=== PATIENT | female | born 1940 | race Caucasian/White ===

== ENCOUNTER 2017-12-14 09:13 | Day surgery (SDC) | payer OTHER ==
[~2017-12-14] VITALS: Ht 157.5 cm; Wt 80.7 kg
[~2017-12-14 09:13] MED LIST: ALEN70 PO; AMLO5 PO; ASCO500; ASPI325 PO; ASPI81CH PO; ASPI81EC; ATOR10; ATOR10 PO; CALCIUM PO; CEPH500 PO; CHOL10002; CHOL10002 PO; CIPR500 PO; CLOP75 PO; DIPH50 PO; ERGO400 PO; FAMO40 PO; Flonase 0.05% N16 GM; Fosamax70 MG; Fosamax70 MG PO; HYDACE5 PO; HYDR1TAB94 PO; IRON PO; LEVSOD100 PO; LEVSOD112 PO; LEVSOD125 PO; LEVSOD25; LORA10 PO; MELO7.5 PO; METR500 PO; MONT10T PO; MULVITMIND PO; MVI; Mobic15 MG PO; NAPR500 PO; Norco 5-325 Ta1 EACH PO; OMEP20ER PO; ONDA4 PO; OXYACE5T; OXYACE5T PO; PHENA200 PO; PRED20 PO; PROM25 PO; Prednisone20 MG PO; RXHYD5325 PO; RXOXYACE PO; RXPROM25 PO; SULTRIDS PO; Sudogest30 MG PO; TOCO400; TRAM50 PO; VICODIN 5-3001 EACH PO; VIT1CAPS12; Vitamin D2000 UNIT PO; Zithromax250 MG PO; Zofran Odt4 MG SL
== END 2017-12-14 12:30 | disposition home or self-care (01) ==
LOC: ORSCMMR 09:13
PROVIDERS: Internal Medicine Gastroenterology
PROC: 0DB68ZX Excision of Stomach, Via Natural or Artificial Opening Endoscopic, Diagnostic (ICD-10-PCS; principal; 2017-12-14 10:30)
PROC: 0DBP8ZX Excision of Rectum, Via Natural or Artificial Opening Endoscopic, Diagnostic (ICD-10-PCS; principal; 2017-12-14 10:30)
PROC: 0DBK8ZX Excision of Ascending Colon, Via Natural or Artificial Opening Endoscopic, Diagnostic (ICD-10-PCS; principal; 2017-12-14 10:30)
PROC: 0DBC8ZX Excision of Ileocecal Valve, Via Natural or Artificial Opening Endoscopic, Diagnostic (ICD-10-PCS; principal; 2017-12-14 10:30)
PROC: 0DB98ZX Excision of Duodenum, Via Natural or Artificial Opening Endoscopic, Diagnostic (ICD-10-PCS; principal; 2017-12-14 10:30)
DX: K62.5 Hemorrhage of anus and rectum (principal); K44.9 Diaphragmatic hernia without obstruction or gangrene; D12.0 Benign neoplasm of cecum; D12.2 Benign neoplasm of ascending colon; D12.4 Benign neoplasm of descending colon; K62.1 Rectal polyp; K64.8 Other hemorrhoids; K57.30 Diverticulosis of large intestine without perforation or abscess without bleeding; Z86.010 Personal history of colon polyps; Z80.0 Family history of malignant neoplasm of digestive organs; Z86.73 Personal history of transient ischemic attack (TIA), and cerebral infarction without residual deficits; E03.9 Hypothyroidism, unspecified; Z79.01 Long term (current) use of anticoagulants; Z79.82 Long term (current) use of aspirin; Z79.899 Other long term (current) drug therapy
CPT/HCPCS: 88305; 88342; J7120

== ENCOUNTER 2018-01-04 09:13 | Emergency (ER) | payer OTHER ==
[~2018-01-04] VITALS: Ht 157.5 cm; Wt 80.3 kg
[2018-01-04 10:51] LABS: Influenza A Negative (NEGATIVE); Influenza B Negative (NEGATIVE)
[2018-01-04] MEDS ORDERED: Zofran Odt4 MG SL (11:01)
[2018-01-04] MEDS ORDERED: Cheratussin AC118 ML PO (11:01)
[2018-01-04] MEDS ORDERED: Zithromax250 MG PO (11:02)
== END 2018-01-04 11:08 | disposition home or self-care (01) ==
LOC: ER 09:13
PROVIDERS: Physician Assistant
DX: R05 Cough (principal); R59.1 Generalized enlarged lymph nodes; Z88.8 Allergy status to other drugs, medicaments and biological substances; Z88.5 Allergy status to narcotic agent; Z79.899 Other long term (current) drug therapy; Z79.82 Long term (current) use of aspirin; I10 Essential (primary) hypertension; E03.9 Hypothyroidism, unspecified; Z86.73 Personal history of transient ischemic attack (TIA), and cerebral infarction without residual deficits
CPT/HCPCS: 71046; 87804; 99284

== ENCOUNTER 2019-03-02 16:05 | Emergency (ER) | payer OTHER ==
[~2019-03-02] VITALS: Ht 157.5 cm; Wt 90.7 kg
[~2019-03-02 16:05] MED LIST changes: +Cheratussin AC118 ML PO
== END 2019-03-02 19:33 | disposition home or self-care (01) ==
LOC: ER 16:05
DX: S01.81XA Laceration without foreign body of other part of head, initial encounter (principal); S61.412A Laceration without foreign body of left hand, initial encounter; S41.111A Laceration without foreign body of right upper arm, initial encounter; S16.1XXA Strain of muscle, fascia and tendon at neck level, initial encounter; I10 Essential (primary) hypertension; Z23 Encounter for immunization; Z86.73 Personal history of transient ischemic attack (TIA), and cerebral infarction without residual deficits; W18.30XA Fall on same level, unspecified, initial encounter
CPT/HCPCS: 12011; 70450; 72125; 73090; 73562-RT; 90471; 90714; 99283-25; L0160

== ENCOUNTER 2021-04-06 16:09 | Emergency (ER) | payer OTHER ==
[~2021-04-06] VITALS: Ht 154.9 cm; Wt 66.7 kg
[~2021-04-06 16:09] MED LIST changes: +METO25ER PO; +Tylenol325 MG PO
[2021-04-06 17:05] LABS: BASOPHILS ABSOLUTE AUTO 0.02 K/mm3 (0.00-0.23); BASOPHILS PERCENT AUTO 0 % (0-2); EOSINOPHILS ABSOLUTE AUTO 0.01 K/mm3 (0.00-0.68); EOSINOPHILS PERCENT AUTO 0 % (0-6); Hematocrit 29.5 % (33.0-51.0); IMMATURE GRAN ABSOLUTE AUTO 0.01 K/mm3 (0.00-0.10); IMMATURE GRAN PERCENT AUTO 0 % (0-1); LYMPHOCYTES ABSOLUTE AUTO 1.58 K/mm3 (0.84-5.20); LYMPHOCYTES PERCENT AUTO 32 % (21-46); MONOCYTES ABSOLUTE AUTO 0.35 K/mm3 (0.16-1.47); MONOCYTES PERCENT AUTO 7 % (4-13); Mean Corpuscular HGB 41.7 pg (26.0-34.0); Mean Corpuscular HGB Conc 33.9 g/dL (31.5-36.5); Mean Corpuscular Volume 123 fL (80-100); Mean Platelet Volume 10.6 fL (9.1-12.4); NEUTROPHILS PERCENT AUTO 60 % (41-73); Platelet Count 179 K/mm3 (150-400); RDW Coefficient Variation 15.4 % (11.7-14.2); RDW Standard Deviation 71.2 fL (35.1-46.3); White Blood Cell Count 4.97 K/mm3 (4.00-11.30)
[2021-04-06 17:17] LABS: Troponin I <0.015 ng/mL (0.000-0.040)
[2021-04-06 17:18] LABS: Alanine Aminotransfer (ALT/SGP 29 U/L (12-78); Albumin, Blood 4.2 g/dL (3.4-5.0); Albumin/Globulin Ratio 1.4 (0.8-1.8); Alk Phos 77 U/L (50-136); Anion Gap 5 mmol/L (6-16); Aspartate Aminotrans (AST/SGOT 27 U/L (12-37); Bilirubin, Total 1.3 mg/dL (0.1-1.0); Blood Urea Nitrogen 10 mg/dL (8-24); Bun/Creatinine Ratio 16.9 (12.0-20.0); CO2, Blood 28 mmol/L (21-32); Calcium, Blood 8.9 mg/dL (8.5-10.1); Chloride, Blood 104 mmol/L (98-108); Creatinine, Blood 0.59 mg/dL (0.40-1.00); Globulin, Blood 3.1 g/dL (2.2-4.0); Glomerular Filtration Rate >60 (60-); Glucose, Blood 68 mg/dL (70-99); Potassium, Blood 4.5 mmol/L (3.5-5.5); Sodium, Blood 137 mmol/L (136-145); Total Protein, Blood 7.3 g/dL (6.4-8.2)
[2021-04-06 19:57] LABS: Glucose, Blood 93 mg/dL (70-99)
[2021-04-06 20:23] LABS: Source, Urine Clean Catch
[2021-04-06 20:30] LABS: Appearance, Urine Clear (Clear); Bilirubin, Urine Neg (Neg); Blood, Urine Neg (Neg); Color, Urine Yellow (P-Yellow); Glucose Qualitative, Urine 2+ (Neg); Ketones, Urine Neg (Neg); Leukocyte Esterase, Urine Neg (Neg); Nitrite, Urine Neg (Neg); Protein, Urine Neg (Neg); Urobilinogen, Urine NORM (Normal)
== END 2021-04-06 21:00 | disposition home or self-care (01) ==
LOC: ER 16:09
PROVIDERS: Emergency Medicine; Physician Assistant
DX: R73.9 Hyperglycemia, unspecified (principal); I25.10 Atherosclerotic heart disease of native coronary artery without angina pectoris; I10 Essential (primary) hypertension; E03.9 Hypothyroidism, unspecified; Z86.73 Personal history of transient ischemic attack (TIA), and cerebral infarction without residual deficits; Z79.02 Long term (current) use of antithrombotics/antiplatelets; Z79.899 Other long term (current) drug therapy; Z79.890 Hormone replacement therapy
CPT/HCPCS: 36415; 71046; 80053; 81003; 82947; 84484; 85025; 93005; 93010; 96374; 99285-25

== ENCOUNTER → 2021-04-17 | Outpatient (CLI) | payer OTHER ==
[2021-04-21 11:15] LABS: Stool Occult Bld Immuno 1 Positive (NEGATIVE)
== END | disposition home or self-care (01) ==
LOC: LAB SHORT 07:00 → LAB 07:00
PROVIDERS: Nurse Practitioner Family
DX: K92.1 Melena (principal); D50.9 Iron deficiency anemia, unspecified
CPT/HCPCS: 82274

== ENCOUNTER 2021-11-23 08:13 | Day surgery (SDC) | payer OTHER ==
[~2021-11-23] VITALS: Ht 157 cm; Wt 69.0 kg
--- NOTE | 2021-11-23 08:51 | NUR ---
History, Chart, Medications and Allergies reviewed before start of procedure. Patient confirms NPO status and agrees with scheduled surgery. Reports taking all of colon prep with clear results. Patient States Post-Procedure ride home has been arranged with her [id number], Radha.
--- NOTE | 2021-11-23 09:12 | NUR ---
PATIENT ALERT AND ORIENTED TO SELF, PROCEDURE AND LOCATION, BUT UNABLE TO ANSWER MANY MEDICAL HX QUESTIONS AND STATES SHE HAS MEMORY ISSUES. HER [id number], SYLVESTER, IS INVITED TO JOIN HER TO HELP WITH MEDICAL HX PER PATIENT'S REQUEST.
[2021-11-23] MEDS ORDERED: ASPIR 8181 MG PO (09:21)
[2021-11-23] MEDS ORDERED: ALEN70 PO (09:22)
[2021-11-23] MEDS ORDERED: B-12500 MC2 PO (09:22)
[2021-11-23] MEDS ORDERED: VIT1CAPS12 PO (09:24)
[2021-11-23] MEDS ORDERED: IRON PO (09:25)
--- NOTE | 2021-11-23 10:24 | NUR ---
11/23/21 Li Peterson HISTORY,CHART, MEDICATIONS AND ALLERGIES REVIEWED BEFORE START OF PROCEDURE. PATIENT CONFIRMS NPO STATUS AND AGREES WITH SCHEDULED PROCEDURE. 3-LEAD EKG REVIEWED WITH PHYSICIAN PRIOR TO START OF PROCEDURE. MONITOR INTACT WITH CONTINUOUS PULSE OXIMETRY AND INTERMITTENT BP. SUPPLEMENTAL O2 TO BE TITRATED THROUGHOUT PROCEDURE TO MAINTAIN O2 SATURATION ABOVE 90%. PATIENT DETERMINED TO BE ASA APPROPRIATE FOR MODERATE SEDATION PRIOR TO START OF PROCEDURE BY . Bite Block Placed & REMOVED AT END OF CASE.
--- NOTE | 2021-11-23 11:29 | NUR ---
PT EATING PUDDING, PT HAS BEEN WANTING TO REST A LITTLE LONGER BEFORE DC. VSS
== END 2021-11-23 23:32 | disposition home or self-care (01) ==
LOC: ORSCMMR 08:13 → ORD 09:00 → ORSCMMR 09:00
PROVIDERS: Internal Medicine Gastroenterology
PROC: 0DB78ZX Excision of Stomach, Pylorus, Via Natural or Artificial Opening Endoscopic, Diagnostic (ICD-10-PCS; principal; 2021-11-23 09:00)
PROC: 0DB98ZX Excision of Duodenum, Via Natural or Artificial Opening Endoscopic, Diagnostic (ICD-10-PCS; principal; 2021-11-23 09:00)
PROC: 0DBL8ZX Excision of Transverse Colon, Via Natural or Artificial Opening Endoscopic, Diagnostic (ICD-10-PCS; principal; 2021-11-23 09:00)
DX: R19.5 Other fecal abnormalities (principal); D46.4 Refractory anemia, unspecified; D12.3 Benign neoplasm of transverse colon; K29.70 Gastritis, unspecified, without bleeding; K21.9 Gastro-esophageal reflux disease without esophagitis; Z86.010 Personal history of colon polyps; Z80.0 Family history of malignant neoplasm of digestive organs; I25.2 Old myocardial infarction; Z86.73 Personal history of transient ischemic attack (TIA), and cerebral infarction without residual deficits; E03.9 Hypothyroidism, unspecified; Z79.899 Other long term (current) drug therapy
CPT/HCPCS: 88305; 88342; A9270; J2250; J3010; J7120

== ENCOUNTER → 2022-12-03 | Outpatient (CLI) | payer OTHER ==
[~2022-12-03] MED LIST changes: +ASPIR 8181 MG PO; +B-12500 MC2 PO; +VIT1CAPS12 PO
[2022-12-03 20:01] LABS: Free Thyroxine 1.4 ng/dL (0.70-1.60)
[2022-12-03 20:05] LABS: Thyroid Stimulating Hormone 2.88 uIU/mL (0.360-4.800)
== END | disposition home or self-care (01) ==
LOC: LAB SHORT 16:56
PROVIDERS: Physician Assistant
DX: E03.9 Hypothyroidism, unspecified (principal)
CPT/HCPCS: 84439; 84443

== ENCOUNTER 2023-11-13 11:07 | Emergency (ER) | payer OTHER ==
[~2023-11-13] VITALS: Ht 157.5 cm; Wt 72.6 kg
[2023-11-13] MEDS ORDERED: MEMA10 PO (11:47)
[2023-11-13] MEDS ORDERED: EUTHYROX100 MC1 PO (11:48)
[2023-11-13 11:59] LABS: BASOPHILS ABSOLUTE AUTO 0.01 K/mm3 (0.00-0.23); BASOPHILS PERCENT AUTO 0 % (0-2); EOSINOPHILS ABSOLUTE AUTO 0.01 K/mm3 (0.00-0.68); EOSINOPHILS PERCENT AUTO 0 % (0-6); Hematocrit 42.2 % (33.0-51.0); IMMATURE GRAN ABSOLUTE AUTO 0.01 K/mm3 (0.00-0.10); IMMATURE GRAN PERCENT AUTO 0 % (0-1); LYMPHOCYTES ABSOLUTE AUTO 1.32 K/mm3 (0.84-5.20); LYMPHOCYTES PERCENT AUTO 25 % (21-46); MONOCYTES ABSOLUTE AUTO 0.43 K/mm3 (0.16-1.47); MONOCYTES PERCENT AUTO 8 % (4-13); Mean Corpuscular HGB 29.4 pg (26.0-34.0); Mean Corpuscular HGB Conc 33.2 g/dL (31.5-36.5); Mean Corpuscular Volume 89 fL (80-100); Mean Platelet Volume 12.1 fL (9.1-12.4); NEUTROPHILS ABSOLUTE AUTO 3.43 K/mm3 (1.96-9.15); NEUTROPHILS PERCENT AUTO 66 % (41-73); Platelet Count 182 K/mm3 (150-400); RDW Coefficient Variation 14.4 % (11.7-14.2); RDW Standard Deviation 46.3 fL (35.1-46.3); Red Blood Cell Count 4.76 M/mm3 (3.80-5.20); White Blood Cell Count 5.21 K/mm3 (4.00-11.30)
[2023-11-13 12:24] LABS: Albumin, Blood 3.1 g/dL (3.4-5.0); Albumin/Globulin Ratio 0.9 (0.8-1.8); Bilirubin, Total 0.6 mg/dL (0.1-1.0); Calcium, Blood 8.2 mg/dL (8.5-10.1); Creatinine, Blood 0.86 mg/dL (0.40-1.00); Globulin, Blood 3.4 g/dL (2.2-4.0); Potassium, Blood 4.3 mmol/L (3.5-5.5); Total Protein, Blood 6.5 g/dL (6.4-8.2)
[2023-11-13 12:30] LABS: SARS-Cov-2 (COVID-19) PCR, MMC POSITIVE (NEGATIVE)
[2023-11-13 12:31] LABS: Influenza A Negative (NEGATIVE); Influenza B Negative (NEGATIVE)
[2023-11-13 14:00] VITALS: BP 124/79
== END 2023-11-13 14:15 | disposition home or self-care (01) ==
LOC: ER 11:07
PROVIDERS: Student in an Organized Health Care Education/Training Program
DX: U07.1 COVID-19 (principal); R55 Syncope and collapse; I10 Essential (primary) hypertension; I25.10 Atherosclerotic heart disease of native coronary artery without angina pectoris; Z86.73 Personal history of transient ischemic attack (TIA), and cerebral infarction without residual deficits; F03.90 Unspecified dementia, unspecified severity, without behavioral disturbance, psychotic disturbance, mood disturbance, and anxiety; E03.9 Hypothyroidism, unspecified; Z79.899 Other long term (current) drug therapy; Z88.7 Allergy status to serum and vaccine; Z88.8 Allergy status to other drugs, medicaments and biological substances; Z91.048 Other nonmedicinal substance allergy status
CPT/HCPCS: 71046; 80053; 83880; 85025; 87804; 87807; 93005; 93010; 96360; 99285-25; J7030; U0002

== ENCOUNTER 2024-08-08 19:19 | Emergency (ER) | payer OTHER ==
[~2024-08-08] VITALS: Ht 162.6 cm; Wt 67.1 kg
[~2024-08-08 19:19] MED LIST changes: +EUTHYROX100 MC1 PO; +MEMA10 PO
[2024-08-08 19:29] VITALS: BP 130/77
[2024-08-08] MEDS ORDERED: Ketorolac Tromethamine 30mg Vial IM ONE (20:25)
[2024-08-08] MEDS ORDERED: RX Prepack 6 Tabs Oxycodone 5mg UD ONE (20:40)
== END 2024-08-08 21:10 | disposition home or self-care (01) ==
LOC: ER 19:19
DX: S80.11XA Contusion of right lower leg, initial encounter (principal); I10 Essential (primary) hypertension; W22.8XXA Striking against or struck by other objects, initial encounter; Z79.82 Long term (current) use of aspirin; Z79.899 Other long term (current) drug therapy; Z91.048 Other nonmedicinal substance allergy status; Z88.7 Allergy status to serum and vaccine; Z88.8 Allergy status to other drugs, medicaments and biological substances
CPT/HCPCS: 73590; 96372; 99283-25; A9270; J1885

== ENCOUNTER → 2024-12-04 | Outpatient (CLI) | payer OTHER ==
[2024-12-04 22:09] LABS: Alanine Aminotransfer (ALT/SGP 17 U/L (12-78); Albumin, Blood 3.1 g/dL (3.4-5.0); Albumin/Globulin Ratio 0.9 (0.8-1.8); Alk Phos 76 U/L (50-136); Anion Gap 9 mmol/L (3-11); Aspartate Aminotrans (AST/SGOT 19 U/L (12-37); Bilirubin, Total 0.7 mg/dL (0.1-1.0); Blood Urea Nitrogen 17 mg/dL (8-24); Bun/Creatinine Ratio 23.8 (12.0-20.0); CHOL/HDL RATIO 2.1; CO2, Blood 26 mmol/L (21-32); Calcium, Blood 9.1 mg/dL (8.5-10.1); Chloride, Blood 108 mmol/L (98-108); Cholesterol 99 mg/dL (50-200); Creatinine, Blood 0.71 mg/dL (0.40-1.00); Ferritin, Serum 222 ng/mL (8-252); Free Thyroxine 1.59 ng/dL (0.70-1.60); Globulin, Blood 3.3 g/dL (2.2-4.0); Glomerular Filtration Rate 84 (60-); Glucose, Blood 78 mg/dL (70-99); HDL Cholesterol 48 mg/dL (>39); Iron Serum 36 ug/dL (50-170); LDL/HDL RATIO 0.8; Low Density Lipoprotein Chol 40 mg/dL (0-110); Percent Saturation 15.8 % (15.0-50.0); Sodium, Blood 139 mmol/L (136-145); Total Iron Binding Capacity 228 ug/dL (250-450); Total Protein, Blood 6.4 g/dL (6.4-8.2); Triglycerides 57 mg/dL (30-160); Very Low Density Lipoprot Chol 11 mg/dL (6-32)
== END | disposition home or self-care (01) ==
LOC: LAB 15:58 → LAB SHORT 15:58
PROVIDERS: Nurse Practitioner Family
DX: E61.1 Iron deficiency (principal); E78.5 Hyperlipidemia, unspecified; E03.9 Hypothyroidism, unspecified
CPT/HCPCS: 80053; 80061; 82728; 83540; 83550; 84439; 84443

== ENCOUNTER 2025-08-14 15:57 | Emergency (ER) | payer OTHER ==
[~2025-08-14] VITALS: Ht 162.6 cm; Wt 54.4 kg
--- NOTE | 2025-08-14 16:49 | NUR ---
"Spiritual Care | ED - EOL Pt. had passed in ED26, when a family member brought me to bedside. Several family members are present. Nurse [employer] had completed EOL Education. Facilitated a short life review, and gather the family at bedside for a time of blessing. Considered matters of alix and beleif. Prayed for the family in this initial moment of loss. Will remain available to family."
== END 2025-08-14 18:53 ==
LOC: ER 15:57
DX: I46.9 Cardiac arrest, cause unspecified (principal); I10 Essential (primary) hypertension; Z66 Do not resuscitate
CPT/HCPCS: 31500; 92950; 99285-25